=== PATIENT | female | born 1965 | race Caucasian/White ===

== ENCOUNTER 2019-01-14 14:39 | Outpatient (REF) | payer BC, SELFPAY ==
--- NOTE | 2019-01-14 14:30 | PAPFT_PTH ---
PATIENT: Summer Wiggins LOC: [facility] U#:[id number] AGE/SX: 53/F ROOM: RE01/14/[address]: JOSE Abreu : 1965 BED: DIS: 01/14/2019 SPEC #: [id number] RECD: 01/14/19 17:51 STATUS: TIMOTHY REQ #: [id number] RADHA: 01/14/19 14:[address]: Tammi Mojica DEPT: [facility] Cytology RECD BY: Katty Barrett ENTERED: 01/14/19 17:52 SP TYPE: PAPFT RIRI DR: Murali Abel Tissues: 1 - CX/ENDOCX FOR PAP SMEARS Procedures: PAP THIN PREP/[facility] Screening HPV DNA PROBE Comments: [id number]
== END 2019-01-14 14:59 ==
LOC: LBN 14:39
PROVIDERS: PCP Neuromusculoskeletal Medicine & OMM; Visit Provider Nurse Practitioner Family
DX: Z12.4 Encounter for screening for malignant neoplasm of cervix (principal); Z11.51 Encounter for screening for human papillomavirus (HPV)
CPT/HCPCS: 88142; 87624

== ENCOUNTER 2023-04-02 15:55 | Outpatient (REF) | payer BC, SELFPAY ==
--- NOTE | 2023-04-02 15:50 | PAPFT_PTH ---
PATIENT: Summer Wiggins LOC: [facility] U#:[id number] AGE/SX: 57/F ROOM: RE04/02/[address]: Cassie Mcfarland NP : 1965 BED: DIS: 04/02/2023 SPEC #: [id number] RECD: 04/03/23 18:22 STATUS: TIMOTHY REMargaret #: [id number] RADHA: 04/02/23 15:[address]: Cassie Mcfarland NP DEPT: REPLACED BY [facility] Cytology RECD BY: Samara Prajapati ENTERED: 04/03/23 18:22 SP TYPE: PAPFT OTHR DR: Murali Abel Tissues: 1 - CX/ENDOCX FOR PAP SMEARS Procedures: PAP THIN PREP/[facility] Screening HPV DNA PROBE Comments: [id number]
== END 2023-04-02 15:56 | disposition home or self-care (01) ==
LOC: LBN 15:55
PROVIDERS: PCP Neuromusculoskeletal Medicine & OMM; Visit Provider Nurse Practitioner Women's Health
DX: Z12.4 Encounter for screening for malignant neoplasm of cervix (principal); Z11.51 Encounter for screening for human papillomavirus (HPV)
CPT/HCPCS: 88142; 87624